=== PATIENT | male | born 1970 | race African-American/Black ===

== ENCOUNTER → 2018-08-02 | Outpatient (CLI) | payer OTHER ==
--- NOTE | 2018-08-03 18:43 | SLEEP ---
DATE OF STUDY: 08/02/2018 ATTENDING PHYSICIAN: Dr. Rosie Welch. The patient is a 48-year-old who weighs 274 pounds with a BMI of 37. The patient's [place] score was 2. The patient underwent a sleep study at [facility]. This was a diagnostic study. During the night study, the patient spent 431 minutes in bed and slept for 404 minutes with a sleep efficiency of 94%. Sleep latency was 12 minutes with a REM latency of 231 minutes. Overall, sleep architecture showed normal stage 1 sleep, increased stage 2 sleep, absent slow wave sleep and reduced REM sleep, which was 11% of the total sleep time. During the night study, the patient had 12 obstructive apneas, 6 mixed apneas, no central apneas and 69 hypopneas. The patient's apnea hypopnea index was 13 per hour with a supine index of 14 per hour and a REM index of 30 per hour. EKG monitoring revealed normal sinus rhythm, average heart rate was 80 beats per minute, no sustained arrhythmias observed. Nocturnal oximetry study revealed a mean oxygen saturation of 94% with the lowest of 83%. 46% of the time oxygen saturation remained between 80% and 89%. No PLMS observed. The patient's AHI was low, as a result CPAP could not be initiated. IMPRESSION: 1. Mild sleep apnea-hypopnea syndrome with worsening during rapid eye movement sleep. Total apnea-hypopnea index 13 per hour with a rapid eye movement apnea-hypopnea index of 30 per hour. 2. Moderate nocturnal hypoxia secondary to obstructive sleep apnea and suspected obesity hypoventilation syndrome. 3. No clinically significant periodic limb movements during sleep. RECOMMENDATIONS: 1. The patient would benefit from treatment of sleep apnea with either oral appliance or a trial of CPAP titration. 2. Once the patient is optimally treated, then follow up in 4-6 weeks to assess compliance and to document clinical improvement. 3. Weight loss is strongly advised. 4. 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 5. Caution regarding driving until symptoms of sleep apnea resolve with the above recommendations. MIL RAMOS MD DR: LOLA/artur JOB#: [id number] / [id number] ecc ROSIE WELCH MD
== END | disposition home or self-care (01) ==
LOC: SLPLAB 18:45
PROVIDERS: ATTEND Pediatrics
DX: G47.33 Obstructive sleep apnea (adult) (pediatric) (principal); G47.34 Idiopathic sleep related nonobstructive alveolar hypoventilation
CPT/HCPCS: 95810

== ENCOUNTER → 2020-09-11 | Day surgery (SDC) | payer OTHER ==
[~2020-09-11] MED LIST: LIDOCAINE 2% PF 5 ML VIAL. ONE; PROPOFOL 10 MG/ML (20ML) VIAL. IV ONE
[2020-09-11 10:10] VITALS: BP 140/97
--- NOTE | 2020-09-13 15:12 | PATHOLOGY ---
[facility] Accession Number: [id number] . 01 Material submitted: . PART A: colon - DESCENDING COLON POLYP. Modifiers: descending PART B: colon - ASCENDING COLON POLYP. Modifiers: ascending . 01 Clinical history: . COLORECTAL CANCER SCREENING COLON . 02 Diagnosis: A. Colonic mucosa, descending colon polyp: - Tubular adenoma. . B. Colonic mucosa, ascending colon polyp: - Tubular adenoma. (JPM:ramesh; 09/13/2020) S 09/13/2020 1009 Local . 02 Comment: There is no high grade dysplasia or evidence of malignancy. (JPM:ramesh; 09/13/2020) . 02 Electronically signed: . Steve Zambrano MD, Pathologist NPI- [id number] . 01 Gross description: . A. The specimen is received in formalin, labeled "Jerry Osborn, descending colon polyp". Received is a segment of light ambrose tissue measuring 0.5 cm in maximum dimensions. The specimen is submitted entirely in cassette A1. . B. The specimen is received in formalin, labeled "Jerry Osborn, ascending colon polyp". Received is a segment of light ambrose tissue measuring 0.7 cm in maximum dimensions. The surgical margin is inked and the segment is bisected. The specimen is submitted entirely in cassette B1. (CAA; 09/12/2020) QAC/QAC 09/13/2020 1010 Local . 02 Pathologist provided ICD-10: D12.4, D12.2 . 02 CPT . 929943, 256038 Specimen Comment: A courtesy copy of this report has been sent to [phone], [phone] Specimen Comment: [id number] Specimen Comment: Report sent to / DR WELCH Performed at: 01 [facility] [address], [place], [place] [id number] MD Mango Miramontes MD Phone: [phone] Performed at: 02 [facility] [address] [place], [place] [id number] MD Steve Zambrano MD Phone: [phone]
== END | disposition home or self-care (01) ==
LOC: SURG 06:32
PROVIDERS: ATTEND Internal Medicine Gastroenterology
DX: Z12.11 Encounter for screening for malignant neoplasm of colon (principal); K64.0 First degree hemorrhoids; D12.4 Benign neoplasm of descending colon; D12.2 Benign neoplasm of ascending colon; K63.89 Other specified diseases of intestine; I10 Essential (primary) hypertension; E78.00 Pure hypercholesterolemia, unspecified; K21.9 Gastro-esophageal reflux disease without esophagitis; Z87.891 Personal history of nicotine dependence; Z88.6 Allergy status to analgesic agent; Z79.899 Other long term (current) drug therapy; Z98.890 Other specified postprocedural states; Z20.822 Contact with and (suspected) exposure to COVID-19
CPT/HCPCS: 45385; 87426; 88305; J2704

== ENCOUNTER 2021-08-17 21:45 | Emergency (ER) | payer OTHER ==
[~2021-08-17] VITALS: Ht 188 cm; Wt 117.9 kg
[2021-08-17] MEDS ORDERED: VANCOMYCIN PER PHARMACY MC PRN (23:30)
--- NOTE | 2021-08-17 23:33 | PHYS DOC ---
General Adult EDM: Chief Complaint: POST-OP PROBLEM HPI: HPI: Patient presents to the emergency department for postop problem. Patient had a port placed in his right chest on Wednesday at [facility]. Patient has non- Hodgkin's lymphoma and is scheduled to start a new chemo. Patient reports pain, drainage and odor to his port in his right chest. Patient denies fevers, shortness of breath, he reports chronic vomiting. Review of Systems: Review of Systems: Constitutional: See HPI HENT: Reports right anterior neck pain along port Respiratory: See HPI Cardiovascular: Reports right chest pain along port site GI: See HPI Musculoskeletal: See HPI Integument: See HPI Heart Score: C/O Chest Pain: No Risk Factors: Risk Factors: DM, Current or recent (<one month) smoker, HTN, HLP, family history of CAD, obesity. Risk Scores: Score 0 - 3: 2.5% MACE over next 6 weeks - Discharge Home Score 4 - 6: 20.3% MACE over next 6 weeks - Admit for Clinical Observation Score 7 - 10: 72.7% MACE over next 6 weeks - Early Invasive Strategies Current Medications: Current Medications Medications (Trade) Dose Ordered Sig/Moreno Start Time Stop Time Status Last Admin Dose Admin Piperacillin Sod/ Tazobactam Sod 4.5 gm/Sodium Chloride 100 ml @ 200 mls/hr 1X ONCE 08/17/21 23:45 08/18/21 00:14 Sodium Chloride 1,000 ml @ 1,000 mls/hr 1X ONCE 08/17/21 23:45 08/18/21 00:44 Vancomycin HCl (Vanco Per Pharmacy) 1 each PRN DAILY PRN 08/17/21 23:30 UNV Allergies: Allergies: Allergies Coded Allergies Type Severity Reaction Last Updated Verified morphine Allergy Intermediate 09/11/20 Yes Physical Exam: PE: Constitutional: Well developed, well nourished, no acute distress, non-toxic appearance. [] HENT: Normocephalic, atraumatic, bilateral external ears normal, oropharynx moist, no oral exudates, nose normal. [] Eyes: PERRL, EOMI, conjunctiva normal, no discharge. [] Neck: Normal range of motion, right anterior neck tenderness along port site, cook pple, no stridor. [] Cardiovascular:Heart rate regular rhythm, no murmur [] Lungs & Thorax: Bilateral breath sounds clear to auscultation [] Abdomen: Bowel sounds normal, soft, no tenderness, no masses, no pulsatile masses. [] Skin: Warm, dry, erythema and dry peeling/scaly skin noted to entire body, several areas of scabbing from patient scratching himself.port noted to right chest with foul, purulent fluid draining, no fluctuance palpated, pain with palpation of site. Back: Normal ROM Extremities: No tenderness, no cyanosis, no clubbing, ROM intact, no edema. [] Neurologic: Alert and oriented X 3, normal motor function, normal sensory function, no focal deficits noted. [] Psychologic: Affect normal, judgement normal, mood normal. [] Current Patient Data: Labs: Laboratory Tests Test 08/17/21 21:27 08/17/21 23:42 Urine Collection Type Void Urine Color (Auto) Colorless Urine Turbidity Clear Urine pH (Auto) 6.0 Urine Specific [place] 1.004 Urine Protein (Auto) Negative mg/dL Urine Glucose (Auto)(UA) Negative mg/dL Urine Ketones (Auto) Negative mg/dL Urine Blood (Auto) Negative Urine Nitrite Negative Urine Bilirubin (Auto) Negative Urine Urobilinogen (Auto) Normal mg/dL Urine Leukocyte Esterase (Auto) Negative Urine RBC 0 /HPF Urine WBC 0 /HPF Urine Squamous Epithelial Cells Few /LPF Urine Bacteria 0 /HPF White Blood Count 13.2 x10^3/uL Red Blood Count 3.88 x10^6/uL Hemoglobin 11.9 g/dL Hematocrit 37.1 % Mean Corpuscular Volume 96 fL Mean Corpuscular Hemoglobin 31 pg Mean Corpuscular Hemoglobin Concent 32 g/dL Red Cell Distribution Width 14.9 % Platelet Count 267 x10^3/uL Neutrophils (%) (Auto) 76 % Lymphocytes (%) (Auto) 11 % Monocytes (%) (Auto) 11 % Eosinophils (%) (Auto) 2 % Basophils (%) (Auto) 1 % Neutrophils # (Auto) 10.0 x10^3/uL Lymphocytes # (Auto) 1.4 x10^3/uL Monocytes # (Auto) 1.4 x10^3/uL Eosinophils # (Auto) 0.3 x10^3/uL Basophils # (Auto) 0.1 x10^3/uL Segmented Neutrophils % 78 % Lymphocytes % 13 % Monocytes % 7 % Eosinophils % 2 % Platelet Estimate Adequate Sodium Level 130 mmol/L Potassium Level 4.1 mmol/L Chloride Level 100 mmol/L Carbon Dioxide Level 19 mmol/L Anion Gap 11 Blood Urea Nitrogen 14 mg/dL Creatinine 1.2 mg/dL Estimated GFR (Cockcroft-Gault) 77.2 BUN/Creatinine Ratio 12 Glucose Level 106 mg/dL Calcium Level 8.6 mg/dL Total Bilirubin 0.9 mg/dL Aspartate Amino Transf (AST/SGOT) 69 U/L Alanine Aminotransferase (ALT/SGPT) 204 U/L Alkaline Phosphatase 693 U/L Troponin I High Sensitivity 5 ng/L Total Protein 8.4 g/dL Albumin 2.8 g/dL Albumin/Globulin Ratio 0.5 Current Medications Medications (Trade) Dose Ordered Sig/Moreno Route PRN Reason Start Time Stop Time Status Last Admin Dose Admin Piperacillin Sod/ Tazobactam Sod 4.5 gm/Sodium Chloride 100 ml @ 200 mls/hr 1X ONCE IV 08/17/21 23:45 08/18/21 00:14 Vancomycin HCl (Vanco Per Pharmacy) 1 each PRN DAILY PRN MC SEE COMMENTS 08/17/21 23:30 Sodium Chloride 1,000 ml @ 1,000 mls/hr 1X ONCE IV 08/17/21 23:45 08/18/21 00:44 Vancomycin HCl 2 gm/Sodium Chloride 500 ml @ 250 mls/hr 1X ONCE IV 08/18/21 00:00 08/18/21 01:59 EKG: EKG: EKG performed by ER staff at 2350 shows sinus rhythm with a rate of 73, no STEMI read by Dr. Johnson[] Radiology/Procedures: Radiology/Procedures: [] Course & Med Decision Making: Course & Med Decision Making Pertinent Labs and Imaging studies reviewed. (See chart for details) Patient presents to the emergency department for postop problem. Patient had a port placed in his right chest on Wednesday at [facility]. Patient has non- Hodgkin's lymphoma and is scheduled to start a new chemo. Patient reports pain, drainage and odor to his port in his right chest. Work-up in the emergency department consisted of blood work including CBC, CMP, troponin, lactic, blood cultures, anaerobic culture on wound. EKG also ordered.Discussed case with supervising physician. Patient's will have a chest x-ray performed. He was treated with IV fluids, Zosyn and vancomycin. I contacted [facility] regarding transfer of patient for continuity of care. 0012: Patient is noted to have leukocytosis with a white blood cell count of 13.2. His sodium was 130. Alk phos was 693. Urinalysis unremarkable. Patient did not have elevated troponin. I am currently awaiting lab results for lactic acid. Wound culture and chest x-ray are also pending. I received notification from [facility] with an accepting physician, Dr. Ibarra. Patient to be transferred to [facility] when you receive a bed assignment via EMS. I discussed these findings with patient as well as care plan he is agreeable to transfer.[employer] Disclaimer: [employer] Disclaimer: This electronic medical record was generated, in whole or in part, using a voice recognition dictation system. Departure Departure Impression: Primary Impression: Infected venous access port Qualified Codes: T80.219A - Unspecified infection due to central venous catheter, initial encounter Disposition: 02 SHORT TERM HOSPITAL Condition: STABLE Referrals: MIKAYLA WELCH MD (PCP) SHYLA SMITH APRN Aug 17, 2021 23:33
[2021-08-17 23:48] LABS: BASO # 0.1 x10^3/uL (0.0-0.2); BASO % 1 % (0-3); EOS # 0.3 x10^3/uL (0.0-0.7); EOS % 2 % (0-3); HEMATOCRIT 37.1 % (39.0-53.0); HEMOGLOBIN 11.9 g/dL (13.0-17.5); LYMPH # 1.4 x10^3/uL (1.0-4.8); LYMPH % 11 % (24-48); MEAN CORPUSCULAR HEMOGLOBIN 31 pg (25-35); MEAN CORPUSCULAR HGB CONC 32 g/dL (31-37); MEAN CORPUSCULAR VOLUME 96 fL (79-100); MONO # 1.4 x10^3/uL (0.0-1.1); MONO % 11 % (0-9); NEUT % 76 % (31-73); PLATELET COUNT 267 x10^3/uL (140-400); RED BLOOD COUNT 3.88 x10^6/uL (4.30-5.70); RED CELL DISTRIBUTION WIDTH 14.9 % (11.5-14.5); WHITE BLOOD COUNT 13.2 x10^3/uL (4.0-11.0)
[2021-08-17 23:50] LABS: BACTERIA,URINE 0 /HPF (0-FEW); RBC,URINE 0 /HPF (0-2); WBC,URINE 0 /HPF (0-4)
[2021-08-17 23:58] LABS: CALCIUM 8.6 mg/dL (8.5-10.1); CREATININE 1.2 mg/dL (0.7-1.3); GFR 77.2; POTASSIUM 4.1 mmol/L (3.5-5.1)
[2021-08-18 00:04] LABS: ALBUMIN 2.8 g/dL (3.4-5.0); ALBUMIN/GLOBULIN RATIO 0.5 (1.0-1.7); TOTAL BILIRUBIN 0.9 mg/dL (0.2-1.0); TOTAL PROTEIN 8.4 g/dL (6.4-8.2)
[2021-08-18 00:08] LABS: % EOS 2 % (0-5); % LYMPHS 13 % (24-48); % MONOS 7 % (0-10); % SEGS 78 % (35-66); PLT ESTIMATE ADEQUATE (ADEQUATE)
[2021-08-18] MEDS: IV NORMAL SALINE 1000ML BAG 1,000 ML IV ONE (00:36)
[2021-08-18] MEDS: PIPERACILLIN/TAZOBACTAM 4.5 GM in IV NORMAL SALINE 100ML 100 ML IV ONE (00:37)
[2021-08-18] MEDS: fentaNYL PF VIAL 100 MCG/2 ML VIAL IVP ONE (01:04)
[2021-08-18] MEDS: VANCOMYCIN 2 GM in IV NORMAL SALINE 500ML BAG 500 ML IV ONE (01:16)
--- NOTE | 2021-08-18 01:19 | RAD ---
EXAMINATION: XR CHEST 1V CLINICAL HISTORY: Port in chest infected. EXAM DATE/TIME: 08/17/2021 11:50 PM COMPARISON: None FINDINGS: Lines, Tubes, and Devices: Right internal jugular Port-A-Cath terminating at the cavoatrial junction. Cardiomediastinal Silhouette: Normal heart size. Lungs and Pleura: Pulmonary hypoexpansion without evidence of focal airspace consolidation or pleural effusion. Nonspecific interstitial prominence, possibly chronic. Bones and Soft Tissues: Degenerative changes in the thoracic spine. IMPRESSION: No definitive evidence of acute cardiopulmonary abnormality. Electronically signed by: Danny Bryson DO (08/18/2021 1:17 AM) ARAM
[2021-08-18 02:07] VITALS: BP 140/63
--- NOTE | 2021-08-18 04:10 | EKG ---
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
== END 2021-08-18 02:20 | disposition short-term general hospital (02) ==
LOC: ER 21:45
DX: T80.219A Unspecified infection due to central venous catheter, initial encounter (principal); Z88.5 Allergy status to narcotic agent; Y82.9 Unspecified medical devices associated with adverse incidents; Y92.89 Other specified places as the place of occurrence of the external cause
CPT/HCPCS: 36415; 71045; 80053; 81001; 83605; 84484; 85007; 85025; 87040; 87075; 87186; 87426; 93005; 96365; 96367; 96375; 99285; J2543; J3010; J3370; J7030; J7040; 87077